=== PATIENT | female | born 1940 | race Two or more races ===

== ENCOUNTER 2017-08-07 09:04 | Outpatient (CLI) | payer OTHER | END 2017-08-07 09:20 | disposition home or self-care (01) | LOC: SONOGRAMA 09:04 | DX: E04.1 Nontoxic single thyroid nodule (principal) ==

== ENCOUNTER 2017-08-25 11:07 | Outpatient (CLI) | payer OTHER | END 2017-08-25 12:18 | disposition home or self-care (01) | LOC: MAMO-SONO 11:07 | DX: Z12.31 Encounter for screening mammogram for malignant neoplasm of breast (principal); Z87.898 Personal history of other specified conditions ==

== ENCOUNTER → 2018-09-30 | Outpatient (CLI) | payer OTHER | END | disposition home or self-care (01) | LOC: MAMO-SONO 08:59 | DX: Z12.31 Encounter for screening mammogram for malignant neoplasm of breast (principal); Z87.898 Personal history of other specified conditions; N60.19 Diffuse cystic mastopathy of unspecified breast; N89.8 Other specified noninflammatory disorders of vagina ==

== ENCOUNTER 2018-10-05 08:27 | Outpatient (CLI) | payer OTHER | END 2018-10-05 08:31 | disposition home or self-care (01) | LOC: NUCLEAR 08:27 | DX: M81.0 Age-related osteoporosis without current pathological fracture (principal) ==

== ENCOUNTER → 2018-10-05 | Outpatient (CLI) | payer OTHER | END | disposition home or self-care (01) | LOC: SONOGRAMA 07:10 → MAMO-SONO 07:15 | DX: R10.84 Generalized abdominal pain (principal); R10.2 Pelvic and perineal pain ==

== ENCOUNTER 2018-10-22 08:21 | Outpatient (CLI) | payer OTHER | END 2018-10-22 08:24 | disposition home or self-care (01) | LOC: TOM 08:21 | DX: C55 Malignant neoplasm of uterus, part unspecified (principal) | CPT/HCPCS: 74177; Q9965 ==

== ENCOUNTER 2020-01-04 09:45 | Outpatient (CLI) | payer OTHER | END 2020-01-04 09:54 | disposition home or self-care (01) | LOC: MAMO-SONO 09:45 | PROVIDERS: ATTEND Specialist | DX: Z12.31 Encounter for screening mammogram for malignant neoplasm of breast (principal); N64.89 Other specified disorders of breast; N64.59 Other signs and symptoms in breast ==

== ENCOUNTER 2021-04-06 12:45 | Emergency (ER) | payer OTHER ==
[~2021-04-06] VITALS: Ht 152.4 cm; Wt 77.1 kg
[2021-04-06] MEDS ORDERED: AMLODIPINE-OLM1 EAC1 (12:50)
[2021-04-06] MEDS ORDERED: DICLOFENAC35 MG (12:51)
== END 2021-04-06 16:13 | disposition home or self-care (01) ==
LOC: ER 12:45
DX: R55 Syncope and collapse (principal)

== ENCOUNTER 2021-04-11 10:11 | Outpatient (CLI) | payer OTHER ==
[~2021-04-11 10:11] MED LIST: AMLODIPINE-OLM1 EAC1; DICLOFENAC35 MG
== END 2021-04-11 10:23 | disposition home or self-care (01) ==
LOC: MRI 10:11
PROVIDERS: ATTEND Physical Medicine & Rehabilitation
DX: D17.79 Benign lipomatous neoplasm of other sites (principal)
CPT/HCPCS: 73718

== ENCOUNTER 2021-07-12 11:52 | Outpatient (CLI) | payer OTHER | END 2021-07-12 12:05 | disposition home or self-care (01) | LOC: MAMO-SONO 11:52 | DX: Z12.31 Encounter for screening mammogram for malignant neoplasm of breast (principal) ==

== ENCOUNTER 2022-07-08 10:10 | Outpatient (CLI) | payer OTHER | END 2022-07-08 10:32 | disposition home or self-care (01) | LOC: MAMO-SONO 10:10 | DX: Z12.31 Encounter for screening mammogram for malignant neoplasm of breast (principal); N60.11 Diffuse cystic mastopathy of right breast; N60.12 Diffuse cystic mastopathy of left breast ==

== ENCOUNTER 2022-07-08 12:35 | Outpatient (CLI) | payer OTHER | END 2022-07-08 12:39 | disposition home or self-care (01) | LOC: NUCLEAR 12:35 | PROVIDERS: ATTEND Specialist | DX: M81.0 Age-related osteoporosis without current pathological fracture (principal) ==